=== PATIENT | male | born 1970 | race Caucasian/White ===

== ENCOUNTER 2017-02-10 12:53 | Outpatient (CLI) | payer BC ==
[~2017-02-10] VITALS: Ht 175.3 cm; Wt 92.7 kg
--- NOTE | 2017-02-10 12:57 | PN ---
Date/Time of Note Date/Time of Note DATE: 02/10/17 TIME: 12:54 Assessment/Plan Assessment/Plan Assessment/Plan [facility] Progress Note Date of Service: 02/10/2017 Today's Impression & Plan: Overall appears to be stable and doing well. No obvious major postoperative complications or wound problems. No further surgical issues at this time. Explained to patient and his and answered all questions. Patient and family appeared to understand and agreed with plans. With above assessment, I've recommended the followin. Follow-up with primary care physician 2. Follow-up with us as needed Thank you very much for allowing us to participate in the care of this very nice patient and wonderful family. If there are any questions, please feel free to contact me at . Nature presenting problem: Moderate risk Complexity decision making: Moderate complexity Please note: Spelling or grammatical errors in this note are likely due to EHR/ dictation systems and are not reflective of patient care quality. Occasional wrong-word or sound-alike substitutions may have occurred due to the inherent limitations of voice recognition software. Please read the chart carefully and recognize, using context, where the substitutions have occurred. The chart may also contain mistakes due to difficulties with voice recognition software. Also please note that the dictation timestamp of this note does not necessarily reflected time of the visit for this service. Updated clinical summary: Very pleasant and otherwise fairly healthy 46-year-old gentleman with only comorbidity of BMI 31, presenting with abdominal pain consistent with biliary colic and possible acute cholecystitis. S/p laparoscopic cholecystectomy [facility] for severe acute on chronic cholecystitis, with final diagnosis of gangrenous cholecystitis. Drain discontinued at bedside on 01/07/2017 prior to discharge home 01/07/2017. Comorbidities: 1. Severe acute on chronic cholecystitis with known previous history of cholelithiasis. S/p laparoscopic cholecystectomy [facility] 01/06/17 for severe acute on chronic cholecystitis 2. BMI 31.1 3. Mention of history of herpes 4. Allergic to aspirin Subjective: No major events or complaints since discharge. No major pain complaints and no longer taking narcotic pain medications. Reports feeling well. No N/V, SOB or CP. + bowel activity Objective: Vitals: reviewed; please also see EHR Physical Exam: Lungs: breathing comfortably without tachypnea; no audible wheezes, rales or rhonchi on gross exam Abd: Soft, non-tender, and non-distended; no peritoneal signs or guarding. Incisions appear to be c/d/i w/o obvious e/e/d/h. Skin: Appears pink and feels warm to touch. Neuro: Awake, alert and follows commands appropriately Exam/Review of Systems Vital Signs Vitals Vital Signs Date Time Temp Pulse Resp B/P Pulse Ox O2 Delivery O2 Flow Rate FiO2 02/10/17 13:04 98.2 87 16 134/82 100 Room Air TERRIE NORTH M.D. Feb 10, 2017 12:57
[2017-02-10 13:03] VITALS: Ht 175.3 cm; Wt 92.7 kg
[2017-02-10 13:04] VITALS: BP 134/82; PULSE 87; RESP 16
== END 2017-02-10 17:00 | disposition home or self-care (01) ==
LOC: HPC 12:53
PROVIDERS: ATTEND Transplant Surgery
DX: K80.12 Calculus of gallbladder with acute and chronic cholecystitis without obstruction (principal)
CPT/HCPCS: G0463